=== PATIENT | female | born 1990 | race Caucasian/White ===

== ENCOUNTER 2022-01-31 18:05 | Emergency (ER) | payer OTHER ==
[2022-01-31] MEDS ORDERED: Acetaminophen 325 MG TAB ONE (18:40)
[2022-01-31] MEDS ORDERED: Ibuprofen 800 MG TAB ONE (18:44)
[2022-01-31 18:49] LABS: Bilirubin Negative (Negative); Blood, Urine Negative (Negative); Clarity Clear (Clear); Glucose, Urine (Dipstick) Negative (Negative); Ketone, Urine Negative (Negative); Leukocyte Negative (Negative); Nitrite Negative (Negative); Protein, Urine (Dipstick) Negative (Neg-Trace); Urobilinogen 0.2 mg/dL (Less than 2); pH, Urine 5.5 (5.0-9.0)
[2022-01-31 18:50] LABS: Pregnancy Test - Urine (BHCG) Negative (Negative); Pregu Control Background? CLEAR/WHITE (CLR/WHITE); Pregu Control Bar Appear? YES (CONTROL BAR); Specific Gravity 1.034 (1.002-1.036)
[2022-01-31 18:51] LABS: Specific Gravity, Urine 1.034 (1.002-1.036)
== END 2022-01-31 19:46 | disposition home or self-care (01) ==
LOC: MADERS 18:05
DX: J02.9 Acute pharyngitis, unspecified (principal); R11.2 Nausea with vomiting, unspecified
CPT/HCPCS: 81003; 81025; 87081; 87430; 87804; 99284